=== PATIENT | male | born 1955 | race Caucasian/White ===

== ENCOUNTER 2024-10-25 10:26 | Outpatient (AMB) | payer MEDICARE, SELFPAY ==
--- NOTE | 2024-10-25 10:43 | A.OFFVIS_ITS ---
Vital Signs 10/25/24 10:46 Height 5 ft 11 in Weight 235 lb 14.314 oz BMI 32.9 BP 161/89 H Blood Pressure Location Lt brachial Position Sitting Pulse 105 H Intake Visit Reasons: pre colonoscopy Intake Note: Tong presents in the office as a new patient pos cologuard. CC: States that he is feeling okay no GI concerns. Field Captain Required: No Allergies No Known Allergies Allergy (Verified 10/25/24 10:47) HPI HPI pre colonoscopy: Details: 69 year old? male with past medical history of diabetes, hyperlipidemia, hypertension is here today for pre colonoscopy screening.? Patient was sent to us by his PCP.? This is his first colonoscopy screening.? Patient recently had positive Cologuard. Denies any melena, hematochezia, unintentional weight loss or ribbon like stools. Patient denies any dyspepsia, dysphagia or odynophagia. Patient denies any gastrointestinal symptoms in the past or at present.? Denies any personal or family history of gastrointestinal disease, colon polyps, or CRC.? Denies history of difficulty with sedation or anesthesia in the past.? Negative for history of sleep apnea.? Denies any history of cardiac, renal, pulmonary, or hepatic disease.?? No history of infectious? diseases like hepatitis A, B, C, HIV or tuberculosis.? Patient is not on any anticoagulation [facility] Medical History (Updated 10/25/24 @ 11:36 by Odalys Uribe, [facility]) Hyperlipidemia HTN (hypertension) Diabetes mellitus Review of Systems Const Denies weight gain and Denies weight loss ENT Reports no additional complaints, Denies dysphagia and Denies odynophagia Card Reports no additional complaints Resp Reports no additional complaints GI Denies abdominal pain, Denies belching, Denies melena, Denies bloating, Denies change in bowel habits, Denies dysphagia, Denies excessive flatus, Denies dyspepsia, Denies heartburn, Denies diarrhea, Denies loose stools, Denies carlene sea, Denies odynophagia and Denies vomiting Reports no additional complaints Musc Reports no additional complaints Neuro Reports no additional complaints Psych Reports no additional complaints Endo Reports no additional complaints Physical Exam Vital Signs: Last Vital Signs Pulse 105 H 10/25/24 10:46 BP 161/89 H 10/25/24 10:46 BMI result Body Mass Index 32.9 Const General: healthy appearing and no acute distress Nutritional Appearance: obese Orientation/consciousness: patient oriented x3 Resp Effort & Inspection: normal respiratory effort, able to speak in complete sentences, no tracheal deviation and symmetric chest movement Auscultation: clear to auscultation bilaterally Cardio Rate: regular rate GI Inspection: Yes normal to inspection, No distended and Yes obesity Palpation (GI): Soft to palpation, not firm, nontender and No hepatosplenomegaly present Auscultation: normal bowel sounds General: Yes no CVA tenderness Back/Spine/Pelvis Back: no CVA tenderness Skin General skin exam: elasticity normal, turgor normal and dry skin Neuro General: patient oriented x3 Psych Appearance: grossly normal Mental Status: mental status grossly normal Assessment & Plan Assessment & Plan (1) Positive colorectal cancer screening using Cologuard test: Code(s): R19.5 - Other fecal abnormalities (2) Screen for colon cancer: Code(s): Z12.11 - Encounter for screening for malignant neoplasm of colon Plan Patient denies any GI, cardiac or respiratory symptoms.? Denies any issues with anesthesia in the past.? Denies any history of sleep apnea.? No history infectious diseases in the past or present.? Not on any anticoagulation therapy.? No family or personal history of colon cancer or polyps.? Patient denies melena, hematochezia, unintentional weight loss or ribbon like stools.? Patient is diabetic and currently taking Trulicity and Tresiba. Discussed with him taking half of the Tresiba dose 2 nights and 1 night before procedure. Patient is also taking lisinopril. Message sent to surgical schedulers to book the procedure. Discussed at length the pre-procedure,? prep, diet & medications as well as what to expect prior, during and after the procedure.?? Stressed the importance of good bowel prep.? Recommended the use of Vaseline or Calmoseptine OTC & baby wipes with bowel movements to promote comfort.? ?Patient verbalizes understanding and agrees to plan of care.? He was given the opportunity to ask questions and all questions answered.? We will see him after the procedure.? Medications: New bisacodyl (Dulcolax (bisacodyl)) Start taking 2 tablet every night 5 days before the procedure and 1 day before procedure take 4 tablets at noon time followed by MiraLax prep 10 mg (2 x 5 mg) PO BEDTIME 16 tabs 0RF Z12.11 - Encounter for screening for malignant neoplasm of colon polyethylene glycol 3350 (Miralax) As directed by gastro[facility]ology department at [facility] 238 gr ams PO ONCE 238 grams 0RF Z12.11 - Encounter for screening for malignant neoplasm of colon Coding Level of Care Code New Pt Level 3 (31922) Diagnoses Positive colorectal cancer screening using Cologuard test R19.5 Screen for colon cancer Z12.11 Time Spent (min) 40 Comment 30 minutes spent with patient and additional 10 minutes spent reviewing his records
[2024-10-25 10:46] VITALS: BP 161/89; PULSE 105; BMI 32.9
--- OUTSIDE RECORDS SUMMARY | 2024-10-25 12:49 | XMS_ITS | Clinical Summary ---
Author Organization [facility], Address [address] [place] [address] Phone Care Team Providers Care Box Strapper Name Role Phone Vik Ryan MD Primary Care Provider [phone] Allergies No known active allergies Medications omega-3 (FISH OIL) 1000 MG capsule Take 1 capsule by mouth 1 (one) time each day Active Multiple Vitamin (MULTI-DAY PO) Take 1 tablet by mouth 1 (one) time each day Active hydroCHLOROthiaz margarito (HYDRODIURIL) 12.5 MG tablet Take 1 tablet by mouth 1 (one) time each day 7 Active insulin degludec (TRESIBA FLEXTOUCH) 100 UNIT/ML injection Inject 35 Units under the skin 1 (one) time each day Active lisinopril (PRINIVIL,ZESTRI L) 40 MG tablet Take 1 tablet by mouth 1 (one) time each day 7 Active pravastatin (PRAVACHOL) 20 MG tablet Take 1 tablet by mouth 1 (one) time each day 7 Active FREESTYLE LITE test strip USE DIRECTED TO TEST ONCE EVERY DAY 2 Active Trulicity 3 MG/0.5ML solution pen-injector ADMINISTER 3 MG UNDER THE SKIN WEEKLY 3 Active tadalafil (CIALIS) 20 MG tablet Take 20 mg by mouth every other day if needed 4 Active sodium bicarbonate 650 MG tablet Take 1 tablet (650 mg total) by mouth in the morning and 1 tablet (650 mg total) at noon and 1 tablet (650 mg total) in the evening. 270 tablet 3 4 06/30/20 25 Active folic acid (FOLVITE) 1 MG tablet TAKE 1 TABLET BY MOUTH DAILY 90 tablet 3 4 Active Active Problems Problem Noted Date Diagnosed Date Renal disorder due to type 2 diabetes mellitus 0 05/12/2021 Chronic kidney disease, stage 4 (severe) 020 Hyperlipidemia 08/14/2019 Type 2 diabetes mellitus Encounters Date Type Department Care Team Description 10/11/2024 2:15 PM EST Office Visit [facility], [address] [address] Luis Fernando Bergeron MD Chronic kidney disease, stage 4 (severe) (HCC) (Primary Dx) 07/29/2024 Refill [facility] [address] [place] [address] Luis Fernando Bergeron MD from Last 3 Months Family History Medical History Relation Comments Diabetes Father Hypertension Father Breast cancer Maternal Grandmother Diabetes Maternal Grandmother Stroke Maternal Grandmother Stroke Mother TIA Seizures Dementia Mother's Sister Hypertension Sibling Relation Status Comments Father Alive Maternal Grandmother Mother Mother's Sister Sibling Social History Tobacco Use Types Packs/Day Years Used Date Smoking Tobacco: Some Days Cigarettes Started: 08/30/1974 Smokeless Tobacco: Never Alcohol Use Standard Drinks/Week Comments Yes 0 (1 standard drink = 0.6 oz pure alcohol) Alcoholic Drinks/day: Occasional social drink Sex and Gender Information Value Date Recorded Sex Assigned at Not on file Legal Sex Male 4:34 PM EST Gender Identity Not on file Sexual Orientation Not on file Last Filed Vital Signs Vital Sign Reading Time Taken Comments Blood Pressure 136/77 08/14/2019 3:12 PM EST Pulse - - Temperature - - Respiratory Rate - - Oxygen Saturation - - Inhaled Oxygen Concentration - - Weight 104 kg (230 lb) 08/14/2019 3:12 PM EST Height 177.8 cm (5' 10 ) 08/15/2018 12:00 PM EST Body Mass Index 33 08/15/2018 12:00 PM EST Plan of Treatment Upcoming Encounters Date Type Department Care Team (Late st Contact Info) Description 04/11/2025 2:15 PM EDT Office Visit [facility], [address] [address] Luis Fernando Bergeron MD [address] [place] [address] Health Maintenance Due Date Last Done Comments Pneumococcal Vaccine: 65+ Years (1 of 2 - PCV) 02/16/1962 Colorectal Cancer Screening: Annual FOBT 02/16/2005 Colorectal Cancer Screening: Colonoscopy 02/16/2005 Colorectal Cancer Screening: Sigmoidoscopy 02/16/2005 Diabetes: Ophthalmology Exam 08/09/2019 Diabetes: Pedal Pulse Checked 08/09/2019 Diabetes: Sensory Foot Exam 08/09/2019 Diabetes: Visual Foot Exam 08/09/2019 Diabetes: Hemoglobin A1C 03/04/2023 023, 05/22/2022, 11/05/2021, Additional history exists Influenza Vaccine (#1) 2024 Hepatitis B Vaccine Aged Out No longe r eligible based on patient's age to complete this topic Procedures Procedure Name Priority Date/Time Associated Diagnosis Comments PTH, INTACT Routine 10/10/2024 6:05 AM EST FERRITIN Routine 10/10/2024 6:05 AM EST MAGNESIUM Routine 10/10/2024 6:05 AM EST PHOSPHATE ( PHOSPHORUS) Routine 10/10/2024 6:05 AM EST URIC ACID Routine 10/10/2024 6:05 AM EST VITAMIN D 25 HYDROXY Routine 10/10/2024 6:05 AM EST URINE ALBUMIN / CREATININE RATIO Routine 10/10/2024 6:05 AM EST IRON PANEL (FE, TIBC, TSAT) Routine 10/10/2024 6:05 AM EST URINALYSIS WITH MICROSCOPIC Routine 10/10/2024 6:05 AM EST COMP. METABOLIC PANEL (14) (HC) Routine 10/10/2024 6:05 AM EST CBC AND DIFFERENTIAL Routine 10/10/2024 6:05 AM EST MICROSCOPIC EXAMINATION - DO NOT USE Routine 10/10/2024 6:05 AM EST HEMOGLOBIN A1C Routine 12/03/2022 6:06 AM EDT Chronic kidney disease, stage 4 (severe) (HCC) from Last 3 Months or Most Recently Relevant to Health Maintenance Results * (ABNORMAL) Comp. Metabolic Panel (14) (10/10/2024 6:05 AM EST) Glucose 61(L) 70 - 99 mg/dL [facility] BUN 27 8 - 27 mg/dL [facility] Creatinine 2.24(H) 0.76 - 1.27 mg/dL [facility] eGFR CKD-EPI CR 2020 31(L) >59 mL/min/1.7 3 [facility] BUN/Creatinine Ratio 12 10 - 24 [facility] Sodium 143 134 - 144 mmol/L [facility] Potassium 4.5 3.5 - 5.2 mmol/L [facility] Chloride 102 96 - 106 mmol/L [facility] Anion Gap 19.0(H) 10.0 - 18.0 mmol/L [facility] Bicarbonate (CO2) 22 20 - 29 mmol/L [facility] Calcium 9.2 8.6 - 10.2 mg/dL [facility] Total Protein 6.1 6.0 - 8.5 g/dL [facility] Albumin 4.1 3.9 - 4.9 g/dL [facility] Globulin 2.0 1.5 - 4.5 g/dL [facility] Total Bilirubin 0.4 0.0 - 1.2 mg/dL [facility] Alkaline Phosphatase 76 44 - 121 IU/L [facility] AST (SGOT) 15 0 - 40 IU/L [facility] ALT (SGPT) 17 0 - 44 IU/L [facility] 10/10/2024 6:05 AM EST 10/10/2024 Luis Fernando Bergeron MD LAB [id number] OLICITED RESULTS Final Result Performing Organization Address City/[facility]/ZIP Co de Phone Number [facility] [address] [place] [address] * Microscopic Examination (10/10/2024 6:05 AM EST) WBC, Urine 0-5 0 - 5 /hpf [facility] RBC, Urine 0-2 0 - 2 /hpf [facility] Squamous Epithelial, Urine None seen 0 - 10 /hpf [facility] Casts None seen None seen /lpf [facility] Bacteria, Urine None seen None seen/Few [facility] 10/10/2024 6:05 AM EST 10/10/2024 Luis Fernando Bergeron MD LAB MICROBIOLOGY - GENERAL ORD ERABLES Final Result [facility] [address] [place] [address] * Iron Panel (Fe, TIBC, TSAT) (10/10/2024 6:05 AM EST) TIBC 284 250 - 450 ug/dL [facility] UIBC 209 111 - 343 ug/dL [facility] Iron 75 38 - 169 ug/dL [facility] Iron Saturation (TSat) 26 15 - 55 % [facility] 10/10/2024 6:05 AM EST 10/10/2024 Luis Fernando Bergeron MD LAB BLOOD ORDERABLES Final Res ult [facility] [address] [place] [address] * (ABNORMAL) Urine Albumin / Creatinine Ratio (10/10/2024 6:05 AM EST) Creatinine, Ur 150.5 Not Estab. mg/dL [facility] Albumin, Urine 1,243.8 Not Estab. ug/mL [facility] Comment: Results confirmed on dilution. Albumin/Creatin ine Ratio 826(H) 0 - 29 mg/g creat [facility] Comment: ? Normal: ?0 - ??29 ? Moderately increased: 30 - 300 ? Severely increased: ? >300 10/10/2024 6:05 AM EST 10/10/2024 us Luis Fernando Bergeron MD LAB URINE ORDERABLES Final Res ult Performing Organization Address City/[facility]/ZIP Co de Phone Number [facility] [address] [place] [address] * Vitamin D 25 Hydroxy (10/10/2024 6:05 AM EST) Vitamin D, 25-OH, Total 44.9 30.0 - 100.0 ng/mL [facility] Comment: Vitamin D deficiency has been defined by the [place] of Medicine and an Endocrine Society practice guideline as a level of serum 25-OH vitamin D less than 20 ng/mL (1,2). The Endocrine Society went on to further define vitamin D insufficiency as a level between 21 and 29 ng/mL (2). 1. IOM ([place] of Medicine). 2010. Dietary reference ?? intakes for calcium and D. [place]: The ?? National [employer]. 2. Benito MF, Tara MUIR, Arnol CHAMBERS, et al. ?? Evaluation, treatment, and prevention of vitamin D ?? deficiency: an Endocrine Society clinical practice ?? guideline. JCEM. 2010; 96(7):1911-30. 10/10/2024 6:05 AM EST 10/10/2024 Luis Fernando Bergeron MD LAB BLOOD ORDERABLES Final Res ult Performing Organization Address City/[facility]/ZIP Co de Phone Number [facility] [address] [place] [address] * (ABNORMAL) Urinalysis with microscopic (10/10/2024 6:05 AM EST) Specific [place], Urine 1.019 1.005 - 1.030 [facility] [phone] pH Urine 6.0 5.0 - 7.5 [facility] Color, Urine Yellow Yellow [facility] [phone] Appearance Urine Clear Clear [facility] [phone] WBC Esterase Urine Negative Negative [facility] Protein, Ur 3+(A) Negative/Tra ce [facility] Glucose, Ur Negative Negative [facility] Ketones, Urine Negative Negative [facility] Blood Urine Negative Negative [facility] [phone] Bilirubin Urine Negative Negative [facility] Urobilinogen Urine 0.2 0.2 - 1.0 mg/dL [facility] Nitrite, Urine Negative Negative [facility] [phone] Microscopic Examination See below: [facility] [phone] Comment:Microscopic was geetha cated and was performed. 10/10/2024 6:05 AM EST 10/10/2024 us Luis Fernando Bergeron MD LAB URINE ORDERABLES Final Res ult [facility] [address] [place] [address] * (ABNORMAL) CBC and Differential (10/10/2024 6:05 AM EST) WBC 8.4 3.4 - 10.8 x10E3/uL [facility] RBC 5.87(H) 4.14 - 5.80 x10E6/uL [facility] Hemoglobin 17.5 13.0 - 17.7 g/dL [facility] Hematocrit 52.0(H) 37.5 - 51.0 % [facility] MCV 89 79 - 97 fL [facility] MCH 29.8 26.6 - 33.0 pg [facility] MCHC 33.7 31.5 - 35.7 g/dL [facility] RDW 13.6 11.6 - 15.4 % [facility] Platelets 172 150 - 450 x10E3/uL [facility] Neutrophils Relative 73 Not Estab. % [facility] Lymphocytes Relative 14 Not Estab. % [facility] Monocytes 7 Not Estab. % [facility] Eosinophils Relative 3 Not Estab. % [facility] Basophils Relative 1 Not Estab. % [facility] Neutrophils Absolute 6.2 1.4 - 7.0 x10E3/uL [facility] Lymphocytes Absolute 1.2 0.7 - 3.1 x10E3/uL [facility] Monocytes Absolute 0.6 0.1 - 0.9 x10E3/uL [facility] Eosinophils Absolute 0.3 0.0 - 0.4 x10E3/uL [facility] Basophils Absolute 0.1 0.0 - 0.2 x10E3/uL [facility] Immature Granulocytes 2 Not Estab. % [facility] Immature Grans (Absolute) 0.1 0.0 - 0.1 x10E3/uL [facility] 10/10/2024 6:05 AM EST 10/10/2024 us Luis Fernando Bergeron MD LAB BLOOD ORDERABLES Final Res ult [facility] [address] [place] [address] * (ABNORMAL) Uric Acid (10/10/2024 6:05 AM EST) Uric Acid 8.6(H) 3.8 - 8.4 mg/dL [facility] Comment:Therapeutic target f or gout patients: <6.0 10/10/2024 6:0 5 AM EST 10/10/2024 Luis Fernando Bergeron MD LAB BLOOD ORDERABLES Final Res ult [facility] [address] [place] [address] * Phosphorus (10/10/2024 6:05 AM EST) Phosphorus 3.2 2.8 - 4.1 mg/dL [facility] 10/10/2024 6:05 AM EST 10/10/2024 Luis Fernando Bergeron MD LAB BLOOD ORDERABLES Final Res ult Performing Organization Address City/[facility]/ZIP Co de Phone Number [facility] [address] [place] [address] * PTH, Intact (10/10/2024 6:05 AM EST) PTH 61 15 - 65 pg/mL [facility] 10/10/2024 6:05 AM EST 10/10/2024 Luis Fernando Bergeron MD LAB BLOOD ORDERABLES Final Res ult [facility] [address] [place] [address] * Magnesium (10/10/2024 6:05 AM EST) Magnesium 1.7 1.6 - 2.3 mg/dL [facility] 10/10/2024 6:05 AM EST 10/10/2024 Luis Fernando Bergeron MD LAB BLOOD ORDERABLES Final Res ult [facility] [address] [place] [address] * Ferritin (10/10/2024 6:05 AM EST) Ferritin 92 30 - 400 ng/mL [facility] 10/10/2024 6:05 AM EST 10/10/2024 Luis Fernando Bergeron MD LAB BLOOD ORDERABLES Final Res ult Performing Organization Address City/[facility] Co de Phone Number [facility] [address] [place] [address] * (ABNORMAL) Hemoglobin A1c (12/03/2022 6:06 AM EDT) Hemoglobin A1C 7.7(H) (4.0-5.6) % [facility] Comment: MONITORING: In known diabetic patients, hemoglobin A1c targets should be discussed with health care provider. DIAGNOSTIC USE: ??The [place] Diabetes Association (ADA) and the World Health Organization (WHO) recommend the use of HbA1c to diagnose diabetes using a threshold of 6.5%. Patients who have an HbA1c between 5.7% and 6.4% are considered at increased risk for developing diabetes in the future. CAUTION: Falsely low HbA1c results may be observed in patients with hemolytic anemia, homozygous forms of abnormal hemoglobin (e.g. SS, CC, SC), , recent blood loss or hemoglobin F greater than 7%. Fructosamine may be used as an alternate test in these cases. REFERENCE: ADA: Standards of Medical Care in Diabetes 2020, The Journal of Clinical and Applied Research and Education Volume 43, Supplement 1 Testing performed or reported by [facility], a Service of [facility], [address] [place] [address] Anay Gurrola MD, [employer] [facility]# [id number] Blood (Blood, Venous) 12/03/2022 6:06 AM EDT 12/03/2022 6:07 AM EDT Luis Fernando Bergeron MD LAB BLOOD ORDERABLES Final Res ult [facility] from Last 3 Months or Most Recently Relevant to Health Maintenance Insurance MEDICARE [place]ICAID [place] Care Teams Box Strapper Relationship Specialty Start Date End Date Vik Ryan MD [facility] [address] [place] [address] [address] [facility] - General 07/04/19
--- OUTSIDE RECORDS SUMMARY | 2024-10-25 12:49 | XMS_ITS | Encounter Summary ---
Author Organization [facility] Address [address] [place] [address] Phone Care Team Providers Care Subway Operator Name Role Phone Vik Ryan MD Primary Care Provider Encounter Details Date Type Department Care Team (Late st Contact Info) Description 10/11/2024 2:15 PM EST Office Visit [facility], [address] [place] [phone] Luis Fernando Bergeron MD [address] [place] [address] [place] [phone] Chronic kidney disease, stage 4 (severe) (HCC) (Primary Dx) Social History Tobacco Use Types Packs/Day Years [...] on file Sexual Orientation Not on file documented as of this encounter Progress Notes * Luis Fernando Bergeron MD - 10/11/2024 2:15 PM EST Images from the original note were not included. PATIENT: Tong Patel Abelardo Bailey : 1955 ENCOUNTER: 10/11/2024 PCP: Vik Ryan MD HPI: Tong Zhou Jr. is a 68 y.o. year old male with a history of T2DM, poorly controlled, HTN CKDIV with no significant proteinuria. States that doing well, BP is usually around 110/70 mm Hg. Had labwork 11/05/21: HbA1C 9.5%, Scr 2.3 mg/dL. Denies taking NSAIDs. Vit D level 54. Metformin was discontinued, patient reports side effects of jardiance, external genital infection, has to wake up 2- 3 times at night to go the bathroom, urology offered flomax but he does not want to take extra medicine, awaiting MRI if the prostate to decide about biopsy. Came today for the follow up, has h/o prostate cancer, sees urologist, as per patient watchful management, rarely checks BP at home, last time it was 125/70. Last Labs: Cr2.3, ACR 430, CBC is ok, lytes in the right order. 04/19: came for the follow up, doing well, no complaints, recent labs: stable renal fx. 400 mg proteinuria. 10/11/24: Tong came today for the follow-up. Doing well. Blood pressure seems to be well-controlled. Recent labs showed stable kidney function with creatinine 2.2-2.4 mg/dL. Lab work remarkable forrising hemoglobin which was 17. Patient admits that he does not sleep well, admits to feeling tiredand fatigued in the morning. Blames frequent urination, he has to go to the bathroom 3 times at nigh t. He does not want to start Flomax, concerned that he is already taking too many medicines. ROS: Constitutional: Negative for chills and fever. HENT: Negative for sore throat. Respiratory: Negative for cough and shortness of breath. Cardiovascular: Negative for chest pain, palpitations and PND. Gastrointestinal: Negative for abdominal pain, constipation, diarrhea, nausea and vomiting. Genitourinary: Negative for dysuria and hematuria. Musculoskeletal: Negative for back pain and myalgias. Skin: Negative for rash. Neurological: Negative for dizziness, focal weakness and headaches. Psychiatric/Behavioral: Negative for depression. All other systems reviewed and are negative. 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 cancer TONSILLECTOMY SOCIAL HISTORY: Social History Tobacco Use Smoking status: Some Days Types: Cigarettes Start date: 08/30/1974 Smokeless tobacco: Never Substance Use Topics Alcohol use: Yes Comment: Alcoholic Drinks/day: Occasional social drink FAMILY HISTORY: Family History Problem Relation Age of Onset Diabetes Father Hypertension Father Stroke Mother TIA Seizures Hypertension Sibling Diabetes Maternal Grandmother Breast cancer Maternal Grandmother Stroke Maternal Grandmother Dementia Mother's Sister MEDICATIONS: Outpatient Encounter Medications as of 10/11/2024 Medication Sig Dispense Refill folic acid (FOLVITE) 1 MG tablet TAKE 1 TABLET BY MOUTH DAILY 90 tablet 3 FREESTYLE LITE test strip USE DIRECTED TO TEST ONCE EVERY DAY hydroCHLOROthiazide (HYDRODIURIL) 12.5 MG tablet Take 1 tablet by mouth 1 (one) time each day insulin degludec (TRESIBA FLEXTOUCH) 100 UNIT/ML injection Inject 35 Units under the skin 1 (one) time each day lisinopril (PRINIVIL,ZESTRIL) 40 MG tablet Take 1 tablet by mouth 1 (one) time each day Multiple Vitamin (MULTI-DAY PO) Take 1 tablet by mouth 1 (one) time each day omega-3 (FISH OIL) 1000 MG capsule Take 1 capsule by mouth 1 (one) time each day pravastatin (PRAVACHOL) 20 MG tablet Take 1 tablet by mouth 1 (one) time each day sodium bicarbonate 650 MG tablet Take 1 tablet (650 mg total) by mouth in the morning and 1 tablet (650 mg total) at noon and 1 tablet (650 mg total) in the evening. 270 tablet 3 tadalafil (CIALIS) 20 MG tablet Take 20 mg by mouth every other day if needed Trulicity 3 MG/0.5ML solution pen-injector ADMINISTER 3 MG UNDER THE SKIN WEEKLY No facility-administered encounter medications on file as of 10/11/2024. ALLERGIES: has No Known Allergies. PHYSICAL EXAM: BP 125/60 Constitutional: No apparent distress HEENT Mouth/Throat: Oropharynx is clear and moist. Eyes: Conjunctivae are normal. No scleral icterus. Neck: Neck supple, no JVD, carotids 2+ Cardiovascular: Normal rate, no friction rub. Pulmonary/Chest: Effort normal, breath sounds normal, no wheezes or rales. Abdominal: Soft, non-tender, without masses or ascites. Musculoskeletal: Normal range of motion without pain. Skin: Skin is warm and dry. No rash noted. No erythema. Psychiatric: Normal mood. Extremities: Edema 0 LABS: Chemistry Lab Units 10/10/24 0604/12/24 0610/07/23 0612/03/22 06 CREATININE mg/dL 2.24* 2.41* 2.3* 2.0* BUN mg/dL 27 36* 34* 25* POTASSIUM mmol/L 4.5 4.5 4.4 4.4 SODIUM mmol/L 143 139 141 141 CO2 mmol/L 22 22 24 27 CHLORIDE mmol/L 102 102 105 102 ALBUMIN g/dL 4.1 4.0 4.7 4.5 EGFRNAFR ML/MIN/1.73 M2 -- -- 30 36 HEMOGLOBIN A1C % -- -- -- 7.7* WBC AUTO x10E3/uL 8.4 7.0 7.2 7.4 HEMATOCRIT % 52.0* 49.6 43.3 44.1 HEMOGLOBIN g/dL 17.5 16.2 14.9 14.7 PLATELETS AUTO x10E3/uL 172 151 151 196 Bone Mineral Lab Units 10/10/24 0604/12/24 0610/07/23 0612/03/22 06 CALCIUM mg/dL 9.2 8.8 9.4 9.4 PHOSPHORUS mg/dL 3.2 4.0 3.3 3.3 ALK PHOS IU/L 76 -- 87 73 PTH pg/mL 61 100* 102* 87* VITAMIN D NG/ML -- -- 33.4 39.5 VIT D 25 HYDROXY ng/mL 44.9 34.7 -- -- Urine Lab Units 04/12/24 0610/07/23 0612/03/22 0608 ALB MG/G CREAT UR mg/g creat 512* 412.0* 150.1 427.7* 101.2 ASSESSMENT: 1. Chronic kidney disease, stage 4 (severe) ([facility]) 1. Chronic kidney disease, stage 4 (severe) (HCC) 2. 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 Mixed hyperlipidemia 4. BPH 5. Albuminuria 400 mg - stopped metformin, high risk of lactic acidosis with GFR 24 ml/min - discontinued jardiance: caused frequnet genital infections - on trulicity now - diabetes poorly controlled, explained importance of control for CKD progression - same BP meds - continue lisinopril - continue follow up with urology - offered allopurinol for hyperuricemia, wants to wait - continue bicarb supplementation - consider sleep study - consider starting Flomax, patient wants to discuss with urologist - follow up in 6 months - repeat labs in 6 months Orders Placed This Encounter CBC and differential Comprehensive metabolic panel Magnesium Phosphorus Ferritin Iron Panel (Fe, TIBC, TSAT) PTH, intact Uric acid Urinalysis with microscopic Urine Albumin / Creatinine Ratio Vitamin D 25 hydroxy documented in this encounter Plan of Treatment Upcoming Encounters Date Type Department Care Team (Late st Contact Info) Description 04/11/2025 2:15 PM EDT Office Visit [facility], [address] [place] [phone] Luis Fernando Bergeron MD [address] [place] [address] [place] [phone] Scheduled Orders Name Type Priority Associated Diagnoses Orde r Schedule CBC and differential Lab Routine Chronic kidney disease, stage 4 (severe) (HCC) Expected: 10/11/2024, Expires: 11/08/2025 Comprehensive metabolic panel Lab Routine Chronic kidney disease, stage 4 (severe) (HCC) Expected: 10/11/2024, Expires: 11/08/2025 Magnesium Lab Routine Chronic kidney disease, stage 4 (severe) (HCC) Expected: 10/11/2024, Expires: 11/08/2025 Phosphorus Lab Routine Chronic kidney disease, stage 4 (severe) (HCC) Expected: 10/11/2024, Expires: 11/08/2025 Ferritin Lab Routine Chronic kidney disease, stage 4 (severe) (HCC) Expected: 10/11/2024, Expires: 11/08/2025 Iron Panel (Fe, TIBC, TSAT) Lab Routine Chronic kidney disease, stage 4 (severe) (HCC) Expected: 10/11/2024, Expires: 11/08/2025 PTH, intact Lab Routine Chronic kidney disease, stage 4 (severe) (HCC) Expected: 10/11/2024, Expires: 11/08/2025 Uric acid Lab Routine Chronic kidney disease, stage 4 (severe) (HCC) Expected: 10/11/2024, Expires: 11/08/2025 Urinalysis with microscopic Lab Routine Chronic kidney disease, stage 4 (severe) (HCC) Expected: 10/11/2024, Expires: 11/08/2025 Urine Albumin / Creatinine Ratio Lab Routine Chronic kidney disease, stage 4 (severe) (HCC) Expected: 10/11/2024, Expires: 11/08/2025 Vitamin D 25 hydroxy Lab Routine Chronic kidney disease, stage 4 (severe) (HCC) Expected: 10/11/2024, Expires: 11/08/2025 documented as of this encounter Visit Diagnoses Diagnosis Chronic kidney disease, stage 4 (severe) (HCC)- Primary documented in this encounter Care Teams Subway Operator Relationship Specialty Start Date End Date Vik Ryan MD [address] [place], [place] PCP - General 07/04/19 documented as of this encounter
--- OUTSIDE RECORDS SUMMARY | 2024-10-25 12:49 | XMS_ITS | Encounter Summary ---
Author Organization [facility] Address [address] [place] [address] Phone Care Team Providers Care Php Programmer Name Role Phone Vik Ryan MD Primary Care Provider [phone] Reason for Visit * Reason Comments Med Refill Encounter Details Date Type Department Care Team (Late st Contact Info) Description 03/30/2020 Refill [facility] [place] [address] [place] [phone] Dylan Aviles MD [address] [facility] [place] [phone] Social History Tobacco Use Types Packs/Day Years Used Date Smoking Tobacco: Some Days Cigarettes Started: 08/30/1974 Alcohol Use Standard Drinks/Week Comments Yes 0 (1 standard drink = 0.6 oz pure alcohol) Alcoholic Drinks/day: Occasional social drink Sex and Gender Information Value Date Recorded Sex Assigned at Not on file Legal Sex Male 4:34 PM EST Gender Identity Not on file Sexual Orientation Not on file documented as of this encounter Plan of Treatment Upcoming Encounters Date Type Department Care Team (Late st Contact Info) Description 04/11/2025 2:15 PM EDT Office Visit [facility] [address] [phone] Luis Fernando Bergeron MD [address] [facility] [address] [place] [phone] documented as of this encounter Visit Diagnoses Not on filedocumented in this encounter Care Teams Php Programmer Relationship Specialty Start Date End Date Vik Ryan MD [facility] [address] [place] [address] [address] [place], [place] PCP - General 07/04/19 documented as of this encounter
--- OUTSIDE RECORDS SUMMARY | 2024-10-25 12:49 | XMS_ITS | Encounter Summary ---
Author Organization [employer] Address [address] [facility] 7 [place] [address] Care Team Providers Care Clinique Counter Manager Name Role Phone Unavailable Primary Care Provider Unavailabl e Encounter Details Date Type Department Care Team (Latest Contact Info) Description 04/26/2019 Abstract [facility] Dental, Provider, DDS Social History Tobacco Use Types Packs/Day Years Used Date Smoking Tobacco: Never Assessed Sex and Gender Information Value Date Recorded Sex Assigned at Not on file Legal Sex Male 5:35 PM EDT Gender Identity Not on file Sexual Orientation Not on file documented as of this encounter Plan of Treatment Not on file documented as of this encounter Visit Diagnoses Not on filedocumented in this encounter
--- OUTSIDE RECORDS SUMMARY | 2024-10-25 12:49 | XMS_ITS | Clinical Summary ---
Author Organization [employer] Address [address] [facility] [address] [place] [address] Care Team Providers Care Scroll Assembler Name Role Phone Unavailable Primary Care Provider Unavailabl e Social History Tobacco Use Types Packs/Day Years Used Date Smoking Tobacco: Never Assessed Sex and Gender Information Value Date Recorded Sex Assigned at Not on file Legal Sex Male 5:35 PM EDT Gender Identity Not on file Sexual Orientation Not on file Plan of Treatment Health Maintenance Due Date Last Done Comments CT Colonography 1955 Colonoscopy 1955 Colorectal Cancer Screening 1955 Depression Screening 1955 FIT DNA/Cologuard 1955 FIT 1955 FOBT 1955 Lipid Panel 1955 Sigmoidoscopy 1955 Alcohol/Substance Use Screening 1968 Tobacco Screening 1968 DTaP/Tdap/Td Vaccines (1 - Tdap) 02/16/1975 Pneumococcal Vaccine: 50+ Ye ars (1 of 1 - PCV) 02/16/2006 Zoster Vaccines (1 of 2) 02/16/2006 COVID-19 Vaccine (1 - 2023-2 5 season) 2024 Influenza Vaccine (#1) 2024 RSV Patients and Pa tients Aged 60 years or older (1 - 1-dose 75+ series) 02/16/2031 HIB Vaccines Aged Out No longer eligi ble based on patient's age to complete this topic HPV Vaccines Aged Out No longer eligi ble based on patient's age to complete this topic Hepatitis A Vaccines Aged Out No long er eligible based on patient's age to complete this topic Hepatitis B Vaccines Aged Out No long er eligible based on patient's age to complete this topic IPV Vaccines Aged Out No longer eligi ble based on patient's age to complete this topic Meningococcal Vaccine Aged Out No violeta jayson eligible based on patient's age to complete this topic RSV under 20 months Aged Out No longe r eligible based on patient's age to complete this topic Rotavirus Vaccines Aged Out No longer eligible based on patient's age to complete this topic
--- OUTSIDE RECORDS SUMMARY | 2024-10-25 12:49 | XMS_ITS | Encounter Summary ---
Author Organization [employer] Address [address] [facility] [address] [place] [address] Care Team Providers Care Medical Physicist Name Role Phone Unavailable Primary Care Provider Unavailabl e Encounter Details Date Type Department Care Team (Latest Contact Info) Description 09/13/2019 Abstract [facility] Dental, Provider, DDS Social [...]
== END 2024-10-25 12:14 | disposition home or self-care (01) ==
PROVIDERS: PCP Physician Assistant Medical; Visit Provider Nurse Practitioner Family
DX: Z01.818 Encounter for other preprocedural examination (principal); Z12.11 Encounter for screening for malignant neoplasm of colon; R19.5 Other fecal abnormalities
CPT/HCPCS: 99024

== ENCOUNTER → 2024-10-25 10:26 | Outpatient (BNVA) | payer MEDICARE, SELFPAY | PROVIDERS: PCP Physician Assistant Medical; Visit Provider Nurse Practitioner Family | DX: Z01.818 Encounter for other preprocedural examination (principal); R19.5 Other fecal abnormalities | CPT/HCPCS: 99212 ==

== ENCOUNTER 2025-02-23 09:17 | Day surgery (SDC) | payer MEDICARE, OTHER, SELFPAY ==
--- OUTSIDE RECORDS SUMMARY | 2025-02-22 13:17 | XMS_ITS | Encounter Summary ---
Author Organization [facility], Address [address] [place] [address] Phone Care Team Providers Care Timber Harvester Operator Name Role Phone Vik Ryan MD Primary Care Provider [phone] Reason for Visit * Reason Comments Med Refill Encounter Details Date Type Department Care Team (Late st Contact Info) Description 03/30/2020 Refill [facility] [place] [address] [place] [phone] Dylan Aviles MD Social History Tobacco Use Types Packs/Day Years [...] Visit [facility], [address] [facility] [address] [place] [address] Luis Fernando Bergeron MD [address] [facility] [place] [address] documented as of this encounter Visit Diagnoses Not on filedocumented in this encounter Care Teams Timber Harvester Operator Relationship Specialty Start Date End Date Vik Ryan MD [facility] [address] [facility] [address] [place], [place] PCP - General 07/04/19 documented as of this encounter
[2025-02-23 09:34] LABS: Glucose, Whole Blood 82 mg/dL (60-115)
[2025-02-23 09:38] VITALS: BMI 32.0
--- NOTE | 2025-02-23 09:43 | MHC.SHP ---
Pre-Procedural Eval Section A - 24 Hr Update-Section A only Date of Service: 02/23/25 Section B - Complete if H&P > 30 days Chief Complaint: Other fecal abnormalities Relevant Family History (Specify if Yes): No Relevant Social History: None Present Medications: see Short Stay Collaborative assessment Medical History: Significant History (Hyperlipidemia HTN (hypertension) Diabetes mellitus) History of Previous Operations: No relevant previous surgery Allergies: Allergies Allergy/AdvReac Type Severity Reaction Status Date / Time No Known Allergies Allergy Verified 10/25/24 10:47 Review of Systems Sugical H&P ROS: Negative: Constitution, Cardiovascular, Respiratory, Neurological, Psychiatric, Hem-Onc, Allergic/Immunologic, Gastrointestinal, Genitourinary, Musculoskeletal, Integumentary, Endocrine and Eyes/Ears/Nose/Throat Exam Surgical H&P Exam: Normal: HEENT, Normal: Heart, Normal: Lungs, Normal: Extremities, Normal: Abdomen, Normal: Skin and Normal: Neurological Plan Diagnosis/Plan: Unchanged I have reviewed the history and physical and performed a pertinent physical examination on my patient. No changes have occurred unless specified. Time Spent With Patient Time: Total time managing care of this patient today ____ minutes.
[2025-02-23 09:57] VITALS: BP 152/112; PULSE 86; RESP 16; TEMP 36.5; O2SAT 96
--- NOTE | 2025-02-23 10:04 | ECG_ITS ---
Test Reason : PRE OP Blood Pressure : */* mmHG Vent. Rate : 108 BPM Atrial Rate : 108 BPM P-R Int : 240 ms QRS Dur : 86 ms QT Int : 322 ms P-R-T Axes : 83 -61 12 degrees QTcB Int : 431 ms Sinus tachycardia with 1st degree A-V block with Premature atrial complexes Left axis deviation Inferior infarct , age undetermined Abnormal ECG No previous ECGs available Referred By: Tamara Kruger Electronically Signed By: BIA KNAPP
--- NOTE | 2025-02-23 10:13 | P.CONAN_ITS ---
FORM[facility]LY [facility] Past Medical History Medical History (Updated 02/23/25 @ 09:36 by Ai Mcconnell RN) Testicular cancer Kidney disease Hyperlipidemia HTN (hypertension) Diabetes mellitus Family History Family history of problems with anesthesia: No Surgical History Surgical History (Updated 02/23/25 @ 09:37 by Ai Mcconnell RN) H/O removal of testicle History of tonsillectomy History of Problems with Anesthesia: No Social History Social History Patient Tobacco Use Status: Current someday Tobacco user Tobacco use type: Cigar Use of substances other than those prescribed or required for medical reasons: No Are you DNR?: No Advance Directives: No Advance Directives Information Provided: Yes Poor oral hygiene: No Meds Allergies Allergy/AdvReac Type Severity Reaction Status Date / Time No Known Allergies Allergy Verified 10/25/24 10:47 Active Medications: Current Medications Lactated Ringer's (Lr) 1,000 mls @ 50 mls/hr IVCONT .Q20H HAZEL Naloxone HCl (Naloxone Hcl 0.4 Mg/Ml Vial) 0.04 mg IVPUSH Q5M PRN PRN Reason: Excessive sedation or RR < 8 Home Medications ?Medication ?Instructions ?Recorded ?Confirmed ?Last Taken ?Type blood-glucose meter (FreeStyle #1 ea 10/23/24 Unknown History Lite Meter kit) dulaglutide 3 mg/0.5 mL mg subcut 10/23/24 02/15/25 History subcutaneous pen injector (Trulicity) folic acid 1 mg tablet 1 mg PO DAILY 10/23/24 Unkn own History hydrochlorothiazide 12.5 mg tablet 12.5 mg PO DAILY Unknown History insulin degludec 100 unit/mL (3 unit subcut 10/23/24 Unknown History mL) subcutaneous pen (Tresiba FlexTouch U-100 insulin) lancets 28 gauge (FreeStyle #100 ea 10/23/24 Unknown History Lancets) lisinopril 40 mg tablet 40 mg PO DAILY 10/23/24 Unk nown History pen needle, diabetic 31 gauge x #1,200 ea 10/23/24 Un known History 16 (BD Ultra-Fine Short Pen Needle) pravastatin 20 mg tablet 20 mg PO DAILY 10/23/24 Unk nown History sodium bicarbonate 650 mg tablet mg PO 10/23/24 Unkno wn History tadalafil 20 mg tablet 20 mg PO Q OTHER DAY PRN Unknown History Exam Height,Weight and Vital Signs: Height 5 ft 11 in Weight 104.1 kg Last Vital Signs Temp 97.7 F 02/23/25 09:57 Pulse 86 02/23/25 09:57 Resp 16 02/23/25 09:57 BP 152/112 H 02/23/25 09:57 Pulse Ox 96 02/23/25 09:57 O2 Del Method Room Air 02/23/25 09:57 Pertinent Lab Results Pertinent Lab Results: Laboratory Tests 02/23/25 09:30 POC Glucose 82 Airway Mallampati Class: II (needing dental work) TM Dist: >3cm Neck ROM: Full Heart: rrr Lungs: cta Assessment and Plan Assessment Anesthesia Assessment: Anesthesia Plan Discussed and Chart Reviewed Final Anesthetic Review Family History of Problems with Anesthesia: No History of Problems with Anesthesia: No NPO: Yes ASA Class: III Final Preanesthetic Review: No Changes in Pt Med Stat, Meds/Allgs Chart Reviewed and Consent Obtained/Reviewed Patient Risk: Low Procedure Risk: Low Anesthetic Plan Anesthetic Plan: MAC: Disposition: Standard PACU
[2025-02-23] MEDS: Dextrose 5 % 250 ML IV (10:27)
--- NOTE | 2025-02-23 11:30 | HO.OPN-COLON ---
Colonoscopy Operative Note Operative Note Date of Service: 02/23/25 Narrative: Operative Information Procedure Description: Colonoscopy Indication: pos cologuard Anesthesia: MAC COLONOSCOPY Instrument: Olympus variable stiffness ADULT scope 190L Colonoscopy Monitoring: Vital signs and clinical assessment, continuous EKG monitoring, Pulse oximetry, Carbon Dioxide monitoring and blood pressure monitoring were done throughout the procedure. Colon withdrawal time was 30 minutes. Procedure: The patient was placed in the left lateral decubitis position and pre-procedure medications were administered. After a digital rectal examination of the ano-rectum, the video colonoscope was inserted into the rectum and advanced through the colon to the cecum/TI. The colonoscope was slowly withdrawn in a retrograde panoramic fashion and the colon mucosa was carefully examined including a retroflexed view of the rectum. Findings and interventions are described below. Procedure Difficulty: moderate due to looping Findings: Terminal Ileum-normal Cecum: x1 sessile polyp 6-8 mm removed with cold snare, x1 sessile polyp 10-12 mm lifted with eleview and removed with eleview and then APC applied to base Ascending Colon: normal Transverse Colon -normal Descending Colon: x 2 sessile polyp 6-9 mm removed with cold snare Sigmoid Colon: x 2 sessile polyp 6-9 mm removed with cold snare, moderate diverticulosis Rectum: Retroflexion with small internal hemorrhoids seen, grade I, x 1 sessile polyp 5-6 mm removed with cold snare, x1 pedunculated polyp 12-14 mm from mid rectum removed with cold snare Anorectum - normal Intervention: cold snare,eleview, APC Colon preparation: [place] Bowel Preparation Scale Right colon; 2 Transverse colon: 2 Left colon; 2 (0 = Unprepared colon segment with mucosa not seen due to solid stool that cannot be cleared. 1 = Portion of mucosa of the colon segment seen, but other areas of the colon segment not well seen due to staining, residual stool and/or opaque liquid. 2 = Minor amount of residual staining, small fragments of stool and/or opaque liquid, but mucosa of colon segment seen well. 3 = Entire mucosa of colon segment seen well with no residual staining, small fragments of stool or opaque liquid) Impression and Post Procedure Diagnosis: diverticulosis colon polyps x 6 internal hemorrhoids Plan: High fiber diet leaflet Avoid straining at stool, epsom salts and sitz bath, anusol supps or cream Repeat Colonoscopy in 6- 8 month or earlier if clinically indicated --WITH ADULT SCOPE and colowrap Above findings were reviewed with the patient and relevant handouts were provided if indicated.
[2025-02-23 11:35] VITALS: BP 124/72; PULSE 90; RESP 16; TEMP 36.1; O2SAT 97
[2025-02-23 11:50] VITALS: BP 114/69; PULSE 91; RESP 16; O2SAT 99
[2025-02-23 12:05] VITALS: BP 116/69; PULSE 74; RESP 18; O2SAT 99
[2025-02-23 12:11] LABS: Glucose, Whole Blood 80 mg/dL (60-115)
[2025-02-23 12:11] LABS: Glucose, Whole Blood 72 mg/dL (60-115)
--- NOTE | 2025-02-23 12:32 | PC.NURSE ---
patient POC 73. asymptomatic. Denies any dizziness, blurred vision. Dr. Kruger aware. Okay to discharge home.
== END 2025-02-23 15:12 | disposition home or self-care (01) ==
PROVIDERS: PCP Internal Medicine; Visit Provider Internal Medicine Gastroenterology
PROC: 0DJD8ZZ Inspection of Lower Intestinal Tract, Via Natural or Artificial Opening Endoscopic (ICD-10-PCS; CPT 45378; principal; 2025-02-23 10:30)
DX: R19.5 Other fecal abnormalities (principal); D12.0 Benign neoplasm of cecum; D12.2 Benign neoplasm of ascending colon; D12.4 Benign neoplasm of descending colon; D12.8 Benign neoplasm of rectum; K56.2 Volvulus; K57.30 Diverticulosis of large intestine without perforation or abscess without bleeding; K64.0 First degree hemorrhoids; E11.9 Type 2 diabetes mellitus without complications; I10 Essential (primary) hypertension; E78.5 Hyperlipidemia, unspecified; Z79.4 Long term (current) use of insulin; Z79.899 Other long term (current) drug therapy; Z79.02 Long term (current) use of antithrombotics/antiplatelets
CPT/HCPCS: 45385; 45381; 82947; 88305; 93005; C1889; J2003; J2704

== ENCOUNTER → 2025-02-23 09:17 | Outpatient (BNV) | payer MEDICARE, MEDICAID, SELFPAY | PROVIDERS: PCP Internal Medicine; Visit Provider Internal Medicine Gastroenterology | DX: Z12.11 Encounter for screening for malignant neoplasm of colon (principal); R19.5 Other fecal abnormalities; D12.0 Benign neoplasm of cecum; D12.4 Benign neoplasm of descending colon; D12.5 Benign neoplasm of sigmoid colon; K57.30 Diverticulosis of large intestine without perforation or abscess without bleeding; K64.0 First degree hemorrhoids | CPT/HCPCS: 45381; 45385 ==

== ENCOUNTER → 2025-02-23 10:04 | Outpatient (BNV) | payer MEDICARE, MEDICAID, SELFPAY | PROVIDERS: PCP Internal Medicine; Visit Provider Internal Medicine | DX: I44.0 Atrioventricular block, first degree (principal); I49.1 Atrial premature depolarization; R00.0 Tachycardia, unspecified | CPT/HCPCS: 93010 ==